=== PATIENT | male | born 1955 | race Caucasian/White ===

== ENCOUNTER 2022-11-14 02:03 | Emergency (ER) | payer MEDICARE ==
[~2022-11-14] VITALS: Ht 180.3 cm; Wt 85.8 kg
[2022-11-14] MEDS ORDERED: ketorolac trometh inj. 60 MG/2 ML VIAL IM ONE (02:40)
[2022-11-14] MEDS ORDERED: acetaminophen 325mg tablet PO ONE (02:40)
[2022-11-14] MEDS ORDERED: HYDR-3965 PO (02:41)
[2022-11-14] MEDS ORDERED: CYCL-1 PO (02:41)
[2022-11-14 03:03] VITALS: BP 135/70
== END 2022-11-14 03:04 | disposition home or self-care (01) ==
LOC: ER 02:05
DX: M54.9 Dorsalgia, unspecified (principal); G89.29 Other chronic pain; Z79.899 Other long term (current) drug therapy
CPT/HCPCS: 96372; 99283; J1885